=== PATIENT | female | born 1990 | race African-American/Black ===

== ENCOUNTER 2017-07-21 03:06 | Inpatient (IN) | payer BC ==
[2017-07-21] MEDS ORDERED: Lidocaine 1% 50 ML MDV INJECT ONE (04:53)
[2017-07-21] MEDS ORDERED: Ondansetron 4 MG/2 ML SDV IVPUSH PRN (04:53)
[2017-07-21] MEDS ORDERED: Sodium Chloride 0.9% 10 ML Syringe FLUSH PRN (04:53)
[2017-07-21] MEDS ORDERED: Nalbuphine 20 MG/1 ML Amp IVPUSH PRN (04:53)
[2017-07-21] MEDS ORDERED: Oxytocin/Lactated Ringers 10 UNIT/1,000 ML BAG IV SCH ×2 (05:00→13:45)
[2017-07-21] MEDS: Lactated Ringers 1,000 ML IV SCH ×3 (05:28→07:23)
[2017-07-21] MEDS ORDERED: diphenhydrAMINE 50 MG/ML SDV IVPUSH PRN (05:58)
[2017-07-21] MEDS ORDERED: fentaNYL 100 MCG/2 ML SDV EPIDUR PRN (05:58)
[2017-07-21] MEDS ORDERED: ePHEDrine 50 MG/ML SDV IVPUSH PRN (05:58)
[2017-07-21] MEDS: Bupivacaine/fentaNYL/NS 100 ML Bag EPIDUR SCH ×2 (06:26→14:16)
--- NOTE | 2017-07-21 06:33 | PCM.PREANE ---
Preanesthetic Assessment - Anesthesia/Transfusion/Family Hx Anesthesia History: Prior Anesthesia Without Reaction Family History of Anesthesia Reaction: No Transfusion History: No Prior Transfusion(s) - Review of Systems General: No Symptoms Pulmonary: No Symptoms Cardiovascular: No Symptoms Gastrointestinal: No Symptoms Neurological: No Symptoms Other: Reports: None - Physical Assessment Respiratory Rate: 18 Vital Signs: Last Vital Signs Temp 36.5 C 07/21/17 03:20 Pulse 80 07/21/17 03:20 Resp 18 07/21/17 03:20 BP 138/76 07/21/17 03:20 Pulse Ox Height: 1.93 m Weight: 98.293 kg ASA Class: 2 Mental Status: Alert & Oriented x3 Airway Class: Mallampati = 1 Dentition: Reports: Normal Dentition Thyro-Mental Finger Breadths: 3 Mouth Opening Finger Breadths: 3 ROM/Head Extension: Full Lungs: Clear to Auscultation, Normal Respiratory Effort Cardiovascular: Regular Rate, Regular Rhythm - Lab Values: Laboratory Last Values WBC 11.19 K/mm3 (3.98-10.04) H 07/21/17 05:05 RBC 3.76 M/mm3 (3.98-5.22) L 07/21/17 05:05 Hgb 12.2 gm/L (11.2-15.7) 07/21/17 05:05 Hct 35.1 % (34.1-44.9) 07/21/17 05:05 MCV 93.4 fl (79.4-94.8) 07/21/17 05:05 MCH 32.4 pg (25.6-32.2) H 07/21/17 05:05 MCHC 34.8 g/dl (32.2-35.5) 07/21/17 05:05 RDW Std Deviation 42.7 fL (36.4-46.3) 07/21/17 05:05 Plt Count 179 K/mm3 (182-369) L 07/21/17 05:05 MPV 11.3 fl (9.4-12.3) 07/21/17 05:05 - Allergies Allergies/Adverse Reactions: Allergies Allergy/AdvReac Type Severity Reaction Status Date / Time Latex, Natural Rubber Allergy Rash Verified 08/21/15 11:13 Sulfa (Sulfonamide Allergy Hives Verified 07/21/17 03:33 Antibiotics) - Anesthesia Plan Pre-Op Medication Ordered: None - Acknowledgements Anesthesia Type Planned: Epidural Pt an Appropriate Candidate for the Planned Anesthesia: Yes Alternatives and Risks of Anesthesia Discussed w Pt/Guardian: Yes Pt/Guardian Understands and Agrees with Anesthesia Plan: Yes PreAnesthesia Questionnaire Gastrointestinal History: Reports: GERD [employer]ORAT[employer]IM[employer] VETERINARIAN History: Reports: - Past Surgical History HEENT Surgical History: Reports: Oral Surgery - SUBSTANCE USE Smoking Status *Q: Never Smoker Recreational Drug Use History: No - HOME MEDS Home Medications: Home Meds Vit No.130/Iron/FA [ Vitamins] 1 tab PO DAILY 08/22/15 [History ] FLUoxetine [PROzac] 10 mg PO DAILY 07/21/17 [History] - CURRENT (IN HOUSE) MEDS Current Meds: Current Medications Diphenhydramine HCl (Benadryl) 25 mg IVPUSH Q6H PRN PRN Reason: Itching Ephedrine Sulfate (Ephedrine Sulfate) 5 mg IVPUSH ASDIRECTED PRN PRN Reason: HYPOTENTSION Fentanyl (Sublimaze) 100 mcg EPIDUR Q3H PRN PRN Reason: PAIN Last Admin: 07/21/17 06:26 Dose: 100 mcg Fentanyl/Bupivacaine HCl (Fentanyl/Bupivacaine/Ns 2 Mcg-0.125% 100 Ml) 100 ml EPIDUR ASDIRECTED EMELYN Last Admin: 07/21/17 06:26 Dose: 100 ml Lactated Ringer's (Ringers, Lactated) 1,000 mls @ 100 mls/hr IV ASDIRECTED EMELYN Last Admin: 07/21/17 05:28 Dose: 999 mls/hr Oxytocin/Lactated Ringer's (Pitocin In Lr 10 Units/1,000 Ml) 10 unit in 1,000 mls @ 500 mls/hr IV .CONTINUOUS [facility] Nalbuphine HCl (Nubain) 10 mg IVPUSH Q2H PRN PRN Reason: Pain (moderate 4-6) Ondansetron HCl (Zofran) 4 mg IVPUSH Q4H PRN PRN Reason: Nausea/Vomiting Sodium Chloride (Saline Flush) 10 ml FLUSH ASDIRECTED PRN PRN Reason: Keep Vein Open Discontinued Medications Lidocaine HCl (Xylocaine 1%) 20 ml INJECT ONETIME ONE Stop: 07/21/17 04:54
[2017-07-21] MEDS ORDERED: FLU Vacc QS 2017-18 (6mos UP)/PF 60 MCG/0.5 ML Syringe IM ONE (07:45)
--- NOTE | 2017-07-21 08:09 | PCM.LDHP ---
L&D History of Present Illness - General Date of Service: 07/21/17 Admit Problem/Dx: Patient Status Order with Admit Dx/Problem 07/21/17 03:52 Patient Status [ADT] Routine 07/21/17 04:53 Patient Status [ADT] Routine Admission Diagnosis/Problem Admission Diagnosis/Problem 07/21/17 08:04 27 yo presents at 36 weeks 4 days with spontaneous labor. No leakage of fluid. No vaginal bleeding. Normal movement. GBS neg STD neg Regular, uncomplicated care - History of Present Illness Location, : Reports: Abdomen Quality: Reports: Ache Severity: Moderate Pain Score: 10 - Related Data Allergies/Adverse Reactions: Allergies Allergy/AdvReac Type Severity Reaction Status Date / Time Latex, Natural Rubber Allergy Rash Verified 08/21/15 11:13 Sulfa (Sulfonamide Allergy Hives Verified 07/21/17 07:15 Antibiotics) Home Medications: Home Meds Vit No.130/Iron/FA [ Vitamins] 1 tab PO DAILY 08/22/15 [History ] FLUoxetine [PROzac] 10 mg PO DAILY 07/21/17 [History] Past Medical History Gastrointestinal History: Reports: GERD [employer] 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: : 4 Para: 3 Other OB/BYN History: H/O pilonidal cyst, abnormal pap smear with normal follow- up Psychiatric History: Reports: Anxiety Endocrine/Metabolic History: Reports: Other (See Below) Other Endocrine/Metabolic History: Hypoglycemia - Past Surgical History HEENT Surgical History: Reports: Oral Surgery Social & Family History - Family History Family Medical History: Noncontributory Other Family History: Kidney Disease - Maternal Grandma - Tobacco Use Smoking Status *Q: Never Smoker Years of Tobacco use: 10 Packs/Tins Daily: 0.5 Used Tobacco, but Quit: Yes Month Tobacco Last Used: 09/2007 - Caffeine Use Caffeine Use: Reports: Soda Other Caffeine Use: daily - Alcohol Use Alcohol Use History: No Days Per Week of Alcohol Use: 0 Number of Drinks Per Day: 0 Total Drinks Per Week: 0 Alcohol Use in Last Twelve Months: Yes Alcohol Use Comment: 3-5 drinks weekly prior to - Recreational Drug Use Recreational Drug Use: No - Living Situation & Occupation Living situation: Reports: H&P Review of Systems - Review of Systems: Review Of Systems: See Below General: Reports: No Symptoms HEENT: Reports: No Symptoms Pulmonary: Reports: No Symptoms Cardiovascular: Reports: No Symptoms Gastrointestinal: Reports: No Symptoms Genitourinary: Reports: No Symptoms Musculoskeletal: Reports: No Symptoms Skin: Reports: No Symptoms Psychiatric: Reports: No Symptoms Neurological: Reports: No Symptoms Hematologic/Lymphatic: Reports: No Symptoms Immunologic: Reports: No Symptoms L&D Exam - Exam Exam: See Below - Vital Signs Vital Signs: Last Vital Signs Temp 36.5 C 07/21/17 03:20 Pulse 76 07/21/17 07:30 Resp 18 07/21/17 06:33 BP 119/77 07/21/17 07:30 Pulse Ox Weight: 98.293 kg - OB Specific Contraction Frequency (min): 3 min Contraction Intensity: Moderate Movement: Active Heart Tones: Present Heart Tones per Min: 130 Heart Rate (FHR) Variability: Moderate (6-25 bmp) Presentation: Vertex Estimated Weight: 3250 - Balderrama Score Balderrama Score Cervix Position: Posterior Balderrama Score Consistency: Soft Balderrama Score Effacement: 31-50% Balderrama Score Dilation: 3-4 cm Balderrama Score 's Station: -2 Balderrama Score Total: 6 - Exam General: Alert, Oriented HEENT: Conjunctiva Clear Cardiovascular: Regular Rate, Regular Rhythm Rectal Exam: Normal Exam, Normal Rectal Tone Genitourinary: Normal external exam Extremities: Normal Inspection, No Pedal Edema Skin: Warm, Dry, Intact Psychiatric: Alert, Normal Affect, Normal Mood - Patient Data Lab Results Last 24 hrs: Laboratory Results - last 24 hr 07/21/17 Range/Units 05:05 WBC 11.19 H (3.98-10.04) K/mm3 RBC 3.76 L (3.98-5.22) M/mm3 Hgb 12.2 (11.2-15.7) gm/L Hct 35.1 (34.1-44.9) % MCV 93.4 (79.4-94.8) fl MCH 32.4 H (25.6-32.2) pg MCHC 34.8 (32.2-35.5) g/dl RDW Std Deviation 42.7 (36.4-46.3) fL Plt Count 179 L (182-369) K/mm3 MPV 11.3 (9.4-12.3) fl Result Diagrams: 07/21/17 05:05 Problem List Initiated/Reviewed/Updated: Yes Orders Last 24hrs: Active Orders 24 hr Category Date Time Status Patient Status [ADT] Routine ADT 07/21/17 04:53 Active Activity as Tolerated [RC] PFP Care 07/21/17 04:53 Active Communication Order [RC] ASDIRECTED Care 07/21/17 04:53 Active Communication Order [RC] ASDIRECTED Care 07/21/17 05:58 Active Garcia Catheter Insertion [Insert Urinary Catheter] [OM. Care 07/21/17 07:30 Ordered PC] Q24H Notify Provider [RC] ASDIRECTED Care 07/21/17 05:58 Active Notify Provider [RC] PFP Care 07/21/17 04:53 Active Notify Provider [RC] PRN Care 07/21/17 04:53 Active Peripheral IV Care [RC] Care 07/21/17 04:53 Active Up ad Gretchen [RC] ASDIRECTED Care 07/21/17 03:53 Active Urinary Catheter Assessment [RC] ASDIRECTED Care 07/21/17 07:18 Active Vital Signs [RC] Care 07/21/17 03:52 Active Regular Diet [DIET] Diet 07/21/17 Breakfast Active Bupivacaine/fentaNYL/NS [fentaNYL/Bupivacaine/NS 2 MCG- Med 07/21/17 06:00 Active 0.125% 100 ML] 100 ml EPIDUR ASDIRECTED Lactated Ringers [Ringers, Lactated] 1,000 ml Med 07/21/17 05:00 Active IV ASDIRECTED Nalbuphine [Nubain] Med 07/21/17 04:53 Active 10 mg IVPUSH Q2H PRN Ondansetron [Zofran] Med 07/21/17 04:53 Active 4 mg IVPUSH Q4H PRN Oxytocin/Lactated Ringers [Pitocin in LR 10 Units/1,000 Med 07/21/17 05:00 Active ML] 10 unit in 1,000 ml IV .CONTINUOUS Sodium Chloride 0.9% [Saline Flush] Med 07/21/17 04:53 Active 10 ml FLUSH ASDIRECTED PRN diphenhydrAMINE [Benadryl] Med 07/21/17 05:58 Active 25 mg IVPUSH Q6H PRN ePHEDrine [ePHEDrine Sulfate] Med 07/21/17 05:58 Active 5 mg IVPUSH ASDIRECTED PRN fentaNYL [Sublimaze] Med 07/21/17 05:58 Active 100 mcg EPIDUR Q3H PRN Electronic Heart Tones Ext w TOCO [WOMSER] Oth 07/21/17 04:53 Ordered Routine Electronic Heart Tones Internal [WOMSER] Per Unit Oth 07/21/17 04:53 Ordered Routine Peripheral IV Insertion Adult [OM.PC] Routine Oth 07/21/17 04:53 Ordered Resuscitation Status Routine Resus Stat 07/21/17 03:52 Ordered Medication Orders Diphenhydramine HCl (Benadryl) 25 mg IVPUSH Q6H PRN PRN Reason: Itching Ephedrine Sulfate (Ephedrine Sulfate) 5 mg IVPUSH ASDIRECTED PRN PRN Reason: HYPOTENTSION Fentanyl (Sublimaze) 100 mcg EPIDUR Q3H PRN PRN Reason: PAIN Last Admin: 07/21/17 06:26 Dose: 100 mcg Fentanyl/Bupivacaine HCl (Fentanyl/Bupivacaine/Ns 2 Mcg-0.125% 100 Ml) 100 ml EPIDUR ASDIRECTED [facility] Last Admin: 07/21/17 06:26 Dose: 100 ml Lactated Ringer's (Ringers, Lactated) 1,000 mls @ 100 mls/hr IV ASDIRECTED [facility] Last Admin: 07/21/17 07:23 Dose: 100 mls/hr Infusion: 07/21/17 07:18 Dose: 999 mls/hr Admin: 07/21/17 06:17 Dose: 999 mls/hr Infusion: 07/21/17 06:17 Dose: 999 mls/hr Admin: 07/21/17 05:28 Dose: 999 mls/hr Oxytocin/Lactated Ringer's (Pitocin In Lr 10 Units/1,000 Ml) 10 unit in 1,000 mls @ 500 mls/hr IV .CONTINUOUS [facility] Nalbuphine HCl (Nubain) 10 mg IVPUSH Q2H PRN PRN Reason: Pain (moderate 4-6) Ondansetron HCl (Zofran) 4 mg IVPUSH Q4H PRN PRN Reason: Nausea/Vomiting Sodium Chloride (Saline Flush) 10 ml FLUSH ASDIRECTED PRN PRN Reason: Keep Vein Open Assessment/Plan Comment:: 27 yo at 36 weeks 4 days with spontaneous labor Plan: GBS negative Epidural has been placed expectant management.
[2017-07-21] MEDS ORDERED: Witch Hazel Medicated Pads 100/Jar TOP PRN (20:19)
[2017-07-21] MEDS ORDERED: Benzocaine/Menthol 20%-0.5% Spray 56 GM Canister TOP PRN (20:19)
--- NOTE | 2017-07-21 20:29 | PCM.SN ---
- Free Text/Narrative Note: On 07/21/2019 at 1950 [place] time this 27 yo G4 now P4 female under epidural anesthesia delivered a viable male infant at 36 weeks 4 days gestation. weighed 6lbs 12 ounces with of 6 and 8 at 1 and 5 minutes respectively. Delivery was via spontaneous vaginal delver to s sterile field. was placed on the mom's abdomen and Cord was clamped and cut. Cord blood sent for analysis. An intact placenta with a 3 vessel cord delivered spontaneously at 1954. 10 units of pitocin were given. A 2 cm laceration to the right anterior labia was repaired using running suture 3-0 vicryl. EBL 600 CC. and mother in delivery room in stable condition at this time.
[2017-07-21] MEDS ORDERED: Bupivacaine 0.25% 10 ML SDV ONE (22:22)
--- NOTE | 2017-07-22 06:42 | PCM.PNPP ---
- General Info Date of Service: 07/22/17 Admission Dx/Problem (Free Text): Patient Status Order with Admit Dx/Problem 07/21/17 03:52 Patient Status [ADT] Routine 07/21/17 04:53 Patient Status [ADT] Routine Admission Diagnosis/Problem Admission Diagnosis/Problem vaginal delivery Subjective Update: 27 yo on PPD #1 s/p . No complications Functional Status: Reports: Pain Controlled, Tolerating Diet, Ambulating - Review of Systems General: Reports: No Symptoms HEENT: Reports: No Symptoms Pulmonary: Reports: No Symptoms Cardiovascular: Reports: No Symptoms Gastrointestinal: Reports: No Symptoms Genitourinary: Reports: No Symptoms Musculoskeletal: Reports: No Symptoms Skin: Reports: No Symptoms Neurological: Reports: No Symptoms Psychiatric: Reports: No Symptoms - General Info Date of Service: 07/22/17 - Patient Data Vital Signs - Most Recent: Last Vital Signs Temp 37.3 C 07/22/17 04:29 Pulse 78 07/22/17 04:29 Resp 13 07/22/17 04:29 BP 114/64 07/22/17 04:29 Pulse Ox 98 07/22/17 04:29 Weight - Most Recent: 98.293 kg I&O - Last 24 Hours: Intake & Output 07/21/17 07/21/17 07/22/17 14:59 22:59 06:59 Intake Total 2180 480 Output Total 725 625 Balance 1455 -145 Med Orders - Current: Current Medications Benzocaine/Menthol (Dermoplast Pain Relief [place]) 0 gm TOP ASDIRECTED PRN PRN Reason: Perineal Comfort Measure Docusate Sodium (Colace) 100 mg PO BID PRN PRN Reason: Constipation Ibuprofen (Motrin) 600 mg PO Q4H PRN PRN Reason: Mild pain or fever Witch Pat (Tucks) 1 pad TOP ASDIRECTED PRN PRN Reason: Hemorrhoid pain Discontinued Medications Diphenhydramine HCl (Benadryl) 25 mg IVPUSH Q6H PRN PRN Reason: Itching Ephedrine Sulfate (Ephedrine Sulfate) 5 mg IVPUSH ASDIRECTED PRN PRN Reason: HYPOTENTSION Fentanyl (Sublimaze) 100 mcg EPIDUR Q3H PRN PRN Reason: PAIN Last Admin: 07/21/17 06:26 Dose: 100 mcg Fentanyl/Bupivacaine HCl (Fentanyl/Bupivacaine/Ns 2 Mcg-0.125% 100 Ml) 100 ml EPIDUR ASDIRECTED EMELYN Last Admin: 07/21/17 14:16 Dose: 100 ml Fluoxetine HCl (Prozac) 10 mg PO DAILY EMELYN Lactated Ringer's (Ringers, Lactated) 1,000 mls @ 100 mls/hr IV ASDIRECTED EMELYN Last Admin: 07/21/17 07:23 Dose: 100 mls/hr Oxytocin/Lactated Ringer's (Pitocin In Lr 10 Units/1,000 Ml) 10 unit in 1,000 mls @ 500 mls/hr IV .CONTINUOUS EMELYN Oxytocin/Lactated Ringer's (Pitocin In Lr 10 Units/1,000 Ml) 10 unit in 1,000 mls @ 12 mls/hr IV TITRATE EMELYN; 2 MUNITS/MIN PRN Reason: Protocol Last Titration: 07/21/17 18:06 Dose: 14 munits/min, 84 mls/hr Influenza Virus Vaccine (Pharmacy To Dose - Influenza Vaccine) 1 each IM ONETIME ONE Stop: 07/21/17 07:38 Influenza Virus Vaccine (Flulaval Quad [id number]) 60 mcg IM .ONCE ONE Stop: 07/21/17 07:46 Lidocaine HCl (Xylocaine 1%) 20 ml INJECT ONETIME ONE Stop: 07/21/17 04:54 Nalbuphine HCl (Nubain) 10 mg IVPUSH Q2H PRN PRN Reason: Pain (moderate 4-6) Ondansetron HCl (Zofran) 4 mg IVPUSH Q4H PRN PRN Reason: Nausea/Vomiting Last Admin: 07/21/17 13:19 Dose: 4 mg Prenat Multivit/[place]/Iron/Folic Ac ( Plus Iron) 1 each PO DAILY EMELYN Sodium Chloride (Saline Flush) 10 ml FLUSH ASDIRECTED PRN PRN Reason: Keep Vein Open - Interaction Disposition, : in Room with Family Interaction: Holding Infant Feeding: Bottle Fed Infant Support Person: - Recovery Exam Fundal Tone: Firm Fundal Level: 2 Fingerbreadths Below Umbilicus Fundal Placement: Midline Lochia Amount: Moderate Lochia Color: Rubra/Red Episiotomy/Laceration: Approximated Bladder Status: Nonpalpable Urinary Elimination: Voided - Exam General: Alert, Oriented Extremities: No Pedal Edema Skin: Warm, Dry - Problem List Review Problem List Initiated/Reviewed/Updated: Yes - My Orders Last 24 Hours: My Active Orders 07/21/17 20:19 Activity as Tolerated [RC] PER UNIT ROUTINE Vital Signs [RC] ,,12 Benzocaine/Menthol [Dermoplast Pain Relief [place]] See Dose Instructions TOP ASDIRECTED PRN Docusate Sodium [Colace] 100 mg PO BID PRN Ibuprofen [Motrin] 600 mg PO Q4H PRN Witch Pat [Tucks] 1 pad TOP ASDIRECTED PRN Assess Lochia [WOMSER] Per Unit Routine Assess Uterine Involution [WOMSER] Per Unit Routine Breast Pump [WOMSER] Per Unit Routine Medication Administration Instruction [OM.PC] Routine Perineal Care [OM.PC] Per Unit Routine Sitz Bath [OM.PC] Per Unit Routine 07/21/17 20:30 Heat Therapy [OM.PC] PRN 07/21/17 Dinner Regular Diet [DIET] 07/22/17 05:00 CBC W/O DIFF,HEMOGRAM [HEME] Routine 07/22/17 20:30 Heat Therapy [OM.PC] PRN - Assessment Assessment:: 27 yo s/p , PPD 1 - Plan Plan:: routine care. bottle feeding formula plan for d/c on July 23
[2017-07-22] MEDS: Ibuprofen 600 MG Tab PO PRN ×2 (08:07→20:35)
[2017-07-22] MEDS: Docusate Sodium 100 MG Cap PO PRN ×2 (08:07→20:37)
[2017-07-22] MEDS ORDERED: FLU Vacc QS 2017-18 (6mos UP)/PF 60 MCG/0.5 ML Syringe IM ONE (08:17)
[2017-07-22] MEDS ORDERED: Prenatal Multivitamin with Calcium/Folic Acid/Iron Tab PO SCH (09:00)
[2017-07-22] MEDS ORDERED: FLUoxetine 10 MG Cap PO SCH (09:00)
[2017-07-22] MEDS: FLUoxetine 10 MG Cap PO SCH (10:46)
--- NOTE | 2017-07-22 13:05 | PCM48HPAN ---
Post Anesthesia Note - EVALUATION WITHIN 48HRS OF ANESTHETIC Vital Signs in Normal Range: Yes Patient Participated in Evaluation: Yes Respiratory Function Stable: Yes Airway Patent: Yes Cardiovascular Function Stable: Yes Hydration Status Stable: Yes Pain Control Satisfactory: Yes Nausea and Vomiting Control Satisfactory: Yes Mental Status Recovered: Yes
[2017-07-23] MEDS: Ibuprofen 600 MG Tab PO PRN ×2 (03:10→07:50)
[2017-07-23 04:01] VITALS: BP 116/72
[2017-07-23] MEDS: Docusate Sodium 100 MG Cap PO PRN (07:50)
--- NOTE | 2017-07-23 08:57 | PCM.DCSUM1 ---
Discharge Summary - Hospital Course Free Text/Narrative:: 27 yo on ppd #2 s/p NVD at 36 weeks 4 days gestation. uncomplicated delivery of 6-12 infant male. uncomplicated course - Discharge Data Discharge Date: 07/23/17 Discharge Disposition: Home, Self-Care 01 Condition: Good - Discharge Diagnosis/Problem(s) (1) Vaginal delivery SNOMED Code(s): 428456479 ICD Code: O80 - ENCOUNTER FOR FULL-TERM UNCOMPLICATED DELIVERY Status: Acute Current Visit: Yes - Patient Instructions Diet: Usual Diet as Tolerated Activity: As Tolerated Driving: May Drive Today Showering/Bathing: May Shower Notify Provider of: Fever, Increased Pain, Drainage, Nausea and/or Vomiting - Discharge Plan Home Medications: Home Meds Vit No.130/Iron/FA [ Tablet] 1 tab PO DAILY 08/22/15 [History] FLUoxetine [PROzac] 10 mg PO DAILY 07/21/17 [History] Docusate Sodium [Colace] 100 mg PO BID PRN cap 07/23/17 [Rx] Ibuprofen [IJD: Ibuprofen] 600 mg PO Q4H PRN tablet 07/23/17 [Rx] Faye Hinsonel [Tucks] 1 pad TOP ASDIRECTED PRN pad 07/23/17 [Rx] Referrals: Krystle Brito MD [Primary Care Provider] - (6-8 weeks ) - Discharge Summary/Plan Comment DC Time >30 min.: No - General Info Functional Status: Reports: Pain Controlled - Review of Systems General: Reports: No Symptoms HEENT: Reports: No Symptoms Pulmonary: Reports: No Symptoms Cardiovascular: Reports: No Symptoms - Patient Data Vitals - Most Recent: Last Vital Signs Temp 36.6 C 07/22/17 20:31 Pulse 71 07/23/17 03:12 Resp 14 07/23/17 03:12 BP 116/72 07/23/17 03:12 Pulse Ox 100 07/23/17 03:12 Weight - Most Recent: 98.293 kg I&O - Last 24 hours: Intake & Output 07/22/17 07/23/17 07/23/17 22:59 06:59 14:59 Intake Total 560 Balance 560 Med Orders - Current: Current Medications Benzocaine/Menthol (Dermoplast Pain Relief [place]) 0 gm TOP ASDIRECTED PRN PRN Reason: Perineal Comfort Measure Docusate Sodium (Colace) 100 mg PO BID PRN PRN Reason: Constipation Last Admin: 07/23/17 07:50 Dose: 100 mg Fluoxetine HCl (Prozac) 10 mg PO DAILY EMELYN Last Admin: 07/22/17 10:46 Dose: 10 mg Ibuprofen (Motrin) 600 mg PO Q4H PRN PRN Reason: Mild pain or fever Last Admin: 07/23/17 07:50 Dose: 600 mg Witch Pat (Tucks) 1 pad TOP ASDIRECTED PRN PRN Reason: Hemorrhoid pain Discontinued Medications Bupivacaine HCl (Sensorcaine-Mpf 0.25%) 10 ml .ROUTE .STK-MED ONE Stop: 07/21/17 22:23 Diphenhydramine HCl (Benadryl) 25 mg IVPUSH Q6H PRN PRN Reason: Itching Ephedrine Sulfate (Ephedrine Sulfate) 5 mg IVPUSH ASDIRECTED PRN PRN Reason: HYPOTENTSION Fentanyl (Sublimaze) 100 mcg EPIDUR Q3H PRN PRN Reason: PAIN Last Admin: 07/21/17 06:26 Dose: 100 mcg Fentanyl/Bupivacaine HCl (Fentanyl/Bupivacaine/Ns 2 Mcg-0.125% 100 Ml) 100 ml EPIDUR ASDIRECTED EMELYN Last Admin: 07/21/17 14:16 Dose: 100 ml Fluoxetine HCl (Prozac) 10 mg PO DAILY EMELYN Lactated Ringer's (Ringers, Lactated) 1,000 mls @ 100 mls/hr IV ASDIRECTED EMELYN Last Admin: 07/21/17 07:23 Dose: 100 mls/hr Oxytocin/Lactated Ringer's (Pitocin In Lr 10 Units/1,000 Ml) 10 unit in 1,000 mls @ 500 mls/hr IV .CONTINUOUS EMELYN Oxytocin/Lactated Ringer's (Pitocin In Lr 10 Units/1,000 Ml) 10 unit in 1,000 mls @ 12 mls/hr IV TITRATE EMELYN; 2 MUNITS/MIN PRN Reason: Protocol Last Titration: 07/21/17 18:06 Dose: 14 munits/min, 84 mls/hr Influenza Virus Vaccine (Pharmacy To Dose - Influenza Vaccine) 1 each IM ONETIME ONE Stop: 07/21/17 07:38 Influenza Virus Vaccine (Flulaval Quad [id number]) 60 mcg IM .ONCE ONE Stop: 07/21/17 07:46 Influenza Virus Vaccine (Flulaval Quad ) 60 mcg IM .ONCE ONE Stop: 07/22/17 08:18 Last Admin: 07/23/17 07:51 Dose: 60 mcg Lidocaine HCl (Xylocaine 1%) 20 ml INJECT ONETIME ONE Stop: 07/21/17 04:54 Nalbuphine HCl (Nubain) 10 mg IVPUSH Q2H PRN PRN Reason: Pain (moderate 4-6) Ondansetron HCl (Zofran) 4 mg IVPUSH Q4H PRN PRN Reason: Nausea/Vomiting Last Admin: 07/21/17 13:19 Dose: 4 mg Prenat Multivit/[place]/Iron/Folic Ac ( Plus Iron) 1 each PO DAILY EMELYN Sodium Chloride (Saline Flush) 10 ml FLUSH ASDIRECTED PRN PRN Reason: Keep Vein Open - Exam General: Reports: Alert, Oriented Extremities: Normal Inspection, No Pedal Edema *Q Meaningful Use (DIS) - VTE *Q VTE Criteria *Q: - Stroke *Q Stroke Criteria *Q: - AMI *Q AMI Criteria *Q: - General Info Date of Service: 07/23/17 - Patient Data Vital Signs - Most Recent: Last Vital Signs Temp 36.6 C 07/22/17 20:31 Pulse 71 07/23/17 03:12 Resp 14 07/23/17 03:12 BP 116/72 07/23/17 03:12 Pulse Ox 100 07/23/17 03:12 Weight - Most Recent: 98.293 kg I&O - Last 24 Hours: Intake & Output 07/22/17 07/23/17 07/23/17 22:59 06:59 14:59 Intake Total 560 Balance 560 Med Orders - Current: Current Medications Benzocaine/Menthol (Dermoplast Pain Relief [place]) 0 gm TOP ASDIRECTED PRN PRN Reason: Perineal Comfort Measure Docusate Sodium (Colace) 100 mg PO BID PRN PRN Reason: Constipation Last Admin: 07/23/17 07:50 Dose: 100 mg Fluoxetine HCl (Prozac) 10 mg PO DAILY EMELYN Last Admin: 07/22/17 10:46 Dose: 10 mg Ibuprofen (Motrin) 600 mg PO Q4H PRN PRN Reason: Mild pain or fever Last Admin: 07/23/17 07:50 Dose: 600 mg Witch Pat (Tucks) 1 pad TOP ASDIRECTED PRN PRN Reason: Hemorrhoid pain Discontinued Medications Bupivacaine HCl (Sensorcaine-Mpf 0.25%) 10 ml .ROUTE .STK-MED ONE Stop: 07/21/17 22:23 Diphenhydramine HCl (Benadryl) 25 mg IVPUSH Q6H PRN PRN Reason: Itching Ephedrine Sulfate (Ephedrine Sulfate) 5 mg IVPUSH ASDIRECTED PRN PRN Reason: HYPOTENTSION Fentanyl (Sublimaze) 100 mcg EPIDUR Q3H PRN PRN Reason: PAIN Last Admin: 07/21/17 06:26 Dose: 100 mcg Fentanyl/Bupivacaine HCl (Fentanyl/Bupivacaine/Ns 2 Mcg-0.125% 100 Ml) 100 ml EPIDUR ASDIRECTED EMELYN Last Admin: 07/21/17 14:16 Dose: 100 ml Fluoxetine HCl (Prozac) 10 mg PO DAILY EMELYN Lactated Ringer's (Ringers, Lactated) 1,000 mls @ 100 mls/hr IV ASDIRECTED EMELYN Last Admin: 07/21/17 07:23 Dose: 100 mls/hr Oxytocin/Lactated Ringer's (Pitocin In Lr 10 Units/1,000 Ml) 10 unit in 1,000 mls @ 500 mls/hr IV .CONTINUOUS EMELYN Oxytocin/Lactated Ringer's (Pitocin In Lr 10 Units/1,000 Ml) 10 unit in 1,000 mls @ 12 mls/hr IV TITRATE EMELYN; 2 MUNITS/MIN PRN Reason: Protocol Last Titration: 07/21/17 18:06 Dose: 14 munits/min, 84 mls/hr Influenza Virus Vaccine (Pharmacy To Dose - Influenza Vaccine) 1 each IM ONETIME ONE Stop: 07/21/17 07:38 Influenza Virus Vaccine (Flulaval Quad [id number]) 60 mcg IM .ONCE ONE Stop: 07/21/17 07:46 Influenza Virus Vaccine (Flulaval Quad [id number]) 60 mcg IM .ONCE ONE Stop: 07/22/17 08:18 Last Admin: 07/23/17 07:51 Dose: 60 mcg Lidocaine HCl (Xylocaine 1%) 20 ml INJECT ONETIME ONE Stop: 07/21/17 04:54 Nalbuphine HCl (Nubain) 10 mg IVPUSH Q2H PRN PRN Reason: Pain (moderate 4-6) Ondansetron HCl (Zofran) 4 mg IVPUSH Q4H PRN PRN Reason: Nausea/Vomiting Last Admin: 07/21/17 13:19 Dose: 4 mg Prenat Multivit/[place]/Iron/Folic Ac ( Plus Iron) 1 each PO DAILY EMELYN Sodium Chloride (Saline Flush) 10 ml FLUSH ASDIRECTED PRN PRN Reason: Keep Vein Open - Infant Interaction Infant Disposition, : [place] in Room with Family Infant Interaction: Holding Infant Infant Feeding: Bottle Fed Infant Support Person: - Recovery Exam Fundal Tone: Firm Fundal Level: 2 Fingerbreadths Below Umbilicus Fundal Placement: Midline Lochia Amount: Small Lochia Color: Rubra/Red Perineum Description: Other (see below) Other Perinuem Description: 1st degree labial with repair Episiotomy/Laceration: Approximated Bladder Status: Voiding Urinary Elimination: Voided - Exam General: Alert, Oriented Extremities: No Pedal Edema Skin: Warm, Dry
[2017-07-23] MEDS: FLUoxetine 10 MG Cap PO SCH (09:03)
== END 2017-07-23 10:30 | disposition home or self-care (01) | DRG 560 ==
LOC: JD.OBCHECK 03:06 → JD.OB 03:06 → JD.OBCHECK 04:52 → JD.OB 04:53 → OBSVTOIN 19:50 → JD.OB 19:50
PROVIDERS: ADMIT Family Medicine; ATTEND Family Medicine
PROC: 10E0XZZ Delivery of Products of Conception, External Approach (ICD-10-PCS; principal; 2017-07-21)
PROC: 0HQ9XZZ Repair Perineum Skin, External Approach (ICD-10-PCS; 2017-07-21)
PROC: 00HU33Z Insertion of Infusion Device into Spinal Canal, Percutaneous Approach (ICD-10-PCS; 2017-07-21)
PROC: 3E0R3BZ Introduction of Anesthetic Agent into Spinal Canal, Percutaneous Approach (ICD-10-PCS; 2017-07-21)
DX: O70.0 First degree perineal laceration during delivery (principal); Z3A.36 36 weeks gestation of pregnancy; Z37.0 Single live birth
CPT/HCPCS: 36415; 51702; 59300; 59409; 85027; 90686; A9270-GY; J2405; J2590; J3010; J7120